=== PATIENT | female | born 1980 | race Caucasian/White ===

== ENCOUNTER 2017-05-07 17:17 | Emergency (ER) | payer OTHER ==
[~2017-05-07] VITALS: Ht 182.9 cm; Wt 78.1 kg
[2017-05-07] MEDS ORDERED: LIDOCAINE 2% 20 ML VIAL. ONE (17:34)
[2017-05-07 17:40] VITALS: BP 137/81
[2017-05-07] MEDS ORDERED: DIPHTH,PERTUSS(ACELL),TET TOX 0.5 ML DISP.SYRIN. VAX IM ONE (18:00)
[2017-05-07] MEDS ORDERED: LIDOCAINE 1% PF 30 ML VIAL. INJ ONE (18:00)
--- NOTE | 2017-05-07 18:10 | ED.ADGEN ---
Past History Past Medical History: Other Adult General Chief Complaint Chief Complaint " I was cutting frozen chicken.. and I got my Lt. little finger ... twice..." HPI HPI Patient is a 37 year old female who presents with two 1 cm laceration to Lt 5th finger distal. Pt. does not remember last tetanus. Both laceration are 1 cm curved flaps. , Distal neurovascular and movement intact. No exposure ill contacts. No Travel. No hx immunosuppression. Pt. follow s out [facility] Procedure note- Laceration repair Wound washed with surgical soap, then Betadine. Injected edge of wounds and digital block 1% lidocaine. Re-irrigated wound with NS and place 8 simple sutures with 4-0 prolene. Polysporin and dressing. Suture out 10 days. Keep clean and dry. Return if any concern.s Review of Systems Review of Systems Constitutional: Denies fever or chills [] Eyes: Denies change in visual acuity, redness, or eye pain [] HENT: Denies nasal congestion or sore throat [] Respiratory: Denies cough or shortness of breath [] Cardiovascular: No additional information not addressed in HPI [] GI: Denies abdominal pain, nausea, vomiting, bloody stools or diarrhea [] : Denies dysuria or hematuria [] Musculoskeletal: Denies back pain or joint pain [] Integument: Denies rash or skin lesions [] Neurologic: Denies headache, focal weakness or sensory changes [] Endocrine: Denies polyuria or polydipsia [] All other systems were reviewed and found to be within normal limits, except as documented in this note. Family History Family History Non- contributory Current Medications Current Medications Current Medications Medications (Trade) Dose Ordered Sig/Divya Start Time Stop Time Status Last Admin Dose Admin Diphtheria/ Tetanus/Acell Pertussis (Boostrix) 0.5 ml ONCE ONCE 05/07/17 18:00 05/07/17 18:01 DC 05/07/17 18:14 0.5 ML Lidocaine HCl 20 ml STK-MED ONCE 05/07/17 17:34 05/07/17 17:35 DC See Nursing for home Allergies Allergies Allergies Coded Allergies Type Severity Reaction Last Updated Verified codeine Allergy Unknown 05/07/17 Yes Physical Exam Physical Exam Constitutional: Well developed, well nourished, no acute distress, non-toxic appearance. [] HENT: Normocephalic, atraumatic, bilateral external ears normal, oropharynx moist, no oral exudates, nose normal. [] Eyes: PERRLA, EOMI, conjunctiva normal, no discharge. [] Neck: Normal range of motion, no tenderness, supple, no stridor. surgical scar thyroidectomy. Cardiovascular:Heart rate regular rhythm, no murmur [] Lungs & Thorax: Bilateral breath sounds clear to auscultation [] Abdomen: Bowel sounds normal, soft, no tenderness, no masses, no pulsatile masses. [] Skin: Warm, dry, no erythema, no rash. [] Back: No tenderness, no CVA tenderness. [] Extremities: No tenderness, no cyanosis, no clubbing, ROM intact, no edema. [] Except laceration Lt index as per HPI Neurologic: Alert and oriented X 3, normal motor function, normal sensory function, no focal deficits noted. [] Psychologic: Affect normal, judgement normal, mood normal. [] Current Patient Data Vital Signs Vital Signs Date Time Temp Pulse Resp B/P (MAP) Pulse Ox O2 Delivery O2 Flow Rate FiO2 05/07/17 17:40 98.2 80 20 99 Room Air EKG EKG [] Radiology/Procedures Radiology/Procedures [] Course & Med Decision Making Course & Med Decision Making Pertinent Labs and Imaging studies reviewed. (See chart for details). Keep clean and dry. Polysporin 4 x day. Sutures out 10 day.s [] Final Impression Final Impression 1. Laceration.[] Problems: Dragon Disclaimer Dragon Disclaimer This electronic medical record was generated, in whole or in part, using a voice recognition dictation system. DYLON LAURA MD May 07, 2017 18:09
== END 2017-05-07 18:28 | disposition home or self-care (01) ==
LOC: ER 17:17
DX: S61.211A Laceration without foreign body of left index finger without damage to nail, initial encounter (principal); Z88.5 Allergy status to narcotic agent; W26.0XXA Contact with knife, initial encounter; Y93.89 Activity, other specified; Y99.8 Other external cause status; Y92.89 Other specified places as the place of occurrence of the external cause
CPT/HCPCS: 12001; 90471; 90715; 99283; J2001